=== PATIENT | male | born 1960 | race Two or more races ===

== ENCOUNTER 2025-04-11 08:07 | Emergency (ER) | payer BC ==
[~2025-04-11] VITALS: Ht 182.9 cm; Wt 102.1 kg
[2025-04-11] MEDS ORDERED: SIMVASTATIN5 MG PO (08:17)
[2025-04-11] MEDS ORDERED: FAMOtidine 10 MG/ML (4ML VIAL) IV ONE (09:00)
[2025-04-11] MEDS ORDERED: KETOROLAC TROMETHAMINE 30 MG VIAL IV ONE (09:00)
[2025-04-11] MEDS ORDERED: CIPROFLOXACIN IN 5 % DEXTROSE 400 MG/200 ML PIGGYBAG IV ONE ×2 (09:00→09:21)
[2025-04-11] MEDS ORDERED: 0.9 % SODIUM CHLORIDE 1,000 ML IV ONE (09:00)
[2025-04-11] MEDS ORDERED: FAMOTIDINE/PF 20 MG/2 ML VIAL ONE (09:21)
[2025-04-11] MEDS ORDERED: KETOROLAC TROMETHAMINE 30 MG VIAL ONE (09:21)
[2025-04-11 10:17] LABS: BASO % 0.2 % (0.1-1.2); EOS % 1.1 % (0.7-7.0); HEMATOCRIT 41.4 % (40.1-51.0); HEMOGLOBIN 14.8 g/dL (13.7-17.5); LYMPH # 1.76 (1.18-3.74); LYMPH % 18.7 % (19.3-53.1); MEAN CORPUSCULAR HEMOGLOBIN 30.5 pg (25.6-32.2); MONO # 0.77 (0.24-0.82); MONO % 8.2 % (4.7-12.5); NEUT # 6.72 (1.56-6.13); NEUT % 71.5 % (34.0-71.1); PLATELET COUNT 205 K/uL (163-369); RED BLOOD COUNT 4.85 M/uL (4.63-6.08); RED CELL DISTRIBUTION WIDTH 13.3 % (11.6-14.4)
[2025-04-11 10:46] LABS: INR 0.99; PARTIAL THROMBOPLASTIN TIME 30.5 SECONDS (22.0-34.0); PROTHROMBIN TIME 10.8 SECONDS (9.0-11.5)
[2025-04-11 10:47] LABS: BILIRUBIN TOTAL 1.01 mg/dL (0.3-1.2); CALCIUM 9.3 mg/dL (8.5-10.1); CREATININE SERUM 0.88 mg/dL (0.70-1.30); GFR 87.18; GLOBULINA 3.9 G/DL (2.4-3.5); POTASSIUM 4.05 mEq/L (3.5-5.1); TOTAL PROTEIN 7.9 gm/dL (6.4-8.2)
[2025-04-11 10:48] LABS: URINE APPEARANCE Clear; URINE BILIRRUBIN Negative (NEGATIVE); URINE BLOOD Trace; URINE COLOR Yellow; URINE GLUCOSE Negative (NEGATIVE); URINE KETONE Negative (NEGATIVE); URINE LEUKOCYTE Trace; URINE NITRATE Negative; URINE PROTEIN Negative (NEGATIVE); URINE UROBILINOGEN 0.2 E.U./dl
[2025-04-11 10:49] LABS: URINE RBC 6.7 uL (0.0-20.8); URINE WBC 2.4 uL (0.0-23.2)
[2025-04-11 11:16] LABS: URINE BACTERIA 1.2 uL (0.0-1933); URINE EPITHELIAL CELLS 0.1 uL (0.0-38.8)
[2025-04-11] MEDS ORDERED: CIPRO500 MG PO (12:00)
[2025-04-11] MEDS ORDERED: METRONIDAZOLE500 MG PO (12:00)
[2025-04-11] MEDS ORDERED: PEPCID AC20 MG PO (12:00)
[2025-04-11] MEDS ORDERED: PROBIOTIC1 EAC2 PO (12:00)
[2025-04-11] MEDS ORDERED: LEVSIN/SL0.125 MG SL (12:00)
== END 2025-04-11 13:41 | disposition home or self-care (01) ==
LOC: ER 08:45
PROVIDERS: General Practice
DX: R10.32 Left lower quadrant pain (principal); R10.9 Unspecified abdominal pain
CPT/HCPCS: 36415; 74177; Q9965